=== PATIENT | female | born 1970 | race Caucasian/White ===

== ENCOUNTER → 2016-05-21 | Outpatient (CLI) | payer BC ==
[~2016-05-21] MED LIST: CALCTAB7 PO; CYAN10002 IM; FLNCV PO; LEVO150T9 PO; LISI-725 PO; NRT25 PO; ZINC PO
--- NOTE | 2016-05-21 16:45 | DIAGNOSTIC IMAGING REPORT ---
Brain MRI WITHOUT CONTRAST HISTORY: Headache R51 TECHNIQUE: Multiplanar multisequence MRI of the brain was performed without the use of contrast. COMPARISON STUDY: None. FINDINGS: There are no areas of restricted diffusion to suggest acute infarction. The midline structures are intact. The paranasal sinuses are clear. The mastoid air cells are clear. The ventricles and sulci are within normal limits for age. There is no mass, hematoma, midline shift. The major vascular flow-voids at the skull base are well maintained. Several small foci of increased signal are identified in the left frontal and periventricular regions. This can be seen patient with a history of chronic headache. IMPRESSION: Several small foci of increased signal within the periventricular and deep white matter regions. This can be seen in a patient with history of chronic headache. Other etiologies are considered less likely Electronically signed by: Jose Luis Palafox M.D. 05/21/2016 4:44 PM Dictated Date/Time: 05/21/2016 4:41 PM
== END | disposition home or self-care (01) ==
LOC: C.MRI 16:09
PROVIDERS: ATTEND Family Medicine
DX: R51 Headache (principal)

== ENCOUNTER → 2017-02-26 | Outpatient (CLI) | payer BC ==
[~2017-02-26] MED LIST changes: +MTR600X PO; +OXYC-57 PO; +PEDICHW44 PO; +vitamin b12
[2017-02-26 17:39] LABS: BASO % 0.4 %; BASO ABS # 0.04 K/uL (0-0.2); EOS % 2.7 %; EOS ABS # 0.29 K/uL (0-0.5); HEMATOCRIT 39.6 % (37-47); HEMOGLOBIN 13.2 g/dL (12.0-16.0); IG# 0.01 K/uL (0.00-0.02); LYMPH % 25.6 %; LYMPH ABS # 2.73 K/uL (1.2-3.4); MEAN CELL VOLUME 94.7 fL (80-100); MEAN CORPUSCULAR HEMOGLOBIN 31.6 pg (25-34); MEAN CORPUSCULAR HGB CONC 33.3 g/dl (32-36); MEAN PLATELET VOLUME 10.1 fL (7.4-10.4); MONO % 6.5 %; MONO ABS # 0.69 K/uL (0.11-0.59); NEUT % 64.7 %; NEUT ABS # 6.92 K/uL (1.4-6.5); PLATELET COUNT 354 K/uL (130-400); RED CELL DISTRIBUTION WIDTH CV 12.8 % (11.5-14.5); RED CELL DISTRIBUTION WIDTH SD 44.1 fL (36.4-46.3); WHITE BLOOD COUNT 10.68 K/uL (4.8-10.8)
[2017-02-26 17:57] LABS: ALBUMIN 3.9 gm/dl (3.4-5.0); ALT/SGPT 30 U/L (12-78); AST/SGOT 15 U/L (15-37); BLOOD UREA NITROGEN 10 mg/dl (7-18); CALCIUM 8.8 mg/dl (8.5-10.1); CARBON DIOXIDE 28 mmol/L (21-32); CREATININE 0.99 mg/dl (0.60-1.20); GLUCOSE 80 mg/dl (70-99); POTASSIUM 3.7 mmol/L (3.5-5.1); SODIUM 137 mmol/L (136-145)
[2017-02-26 18:08] LABS: ALKALINE PHOSPHATASE 98 U/L (45-117); TOTAL PROTEIN 7.9 gm/dl (6.4-8.2)
== END | disposition home or self-care (01) ==
LOC: C.LAB 17:03
PROVIDERS: ATTEND Student in an Organized Health Care Education/Training Program
DX: R10.811 Right upper quadrant abdominal tenderness (principal); E03.9 Hypothyroidism, unspecified

== ENCOUNTER → 2017-03-15 | Outpatient (CLI) | payer OTHER ==
[~2017-03-15] MED LIST changes: -MTR600X PO; -OXYC-57 PO; -PEDICHW44 PO; -vitamin b12
--- NOTE | 2017-03-15 17:46 | DIAGNOSTIC IMAGING REPORT ---
MRCP CLINICAL HISTORY: ABD PAIN,LOOSE STOOLS,HX OF SPHINCTEROTOMY pain. Nausea. TECHNIQUE: Multi axial MRI acquisition. COMPARISON STUDY: None FINDINGS: Mild bibasilar atelectasis. Liver is uniform in appearance. Prior cholecystectomy. Pancreas is uniform. Mild cortical scarring of the kidneys. Several small renal cortical cysts. No evidence renal hydronephrosis. No significant upper abdominal adenopathy. Nonobstructive bowel pattern. MRCP component of the study is unremarkable. No biliary ductal distention. No significant filling defects. IMPRESSION: 1. Several small renal cysts. 2. Minimal bibasilar dependent atelectasis. 3. Otherwise negative study post cholecystectomy. 4. Negative MRCP The above report was generated using voice recognition software. It may contain grammatical, syntax or spelling errors. Electronically signed by: Jose Luis Palafox M.D. 03/15/2017 5:44 PM Dictated Date/Time: 03/15/2017 5:39 PM
== END | disposition home or self-care (01) ==
LOC: C.MRI 17:01
PROVIDERS: ATTEND Family Medicine
DX: N28.1 Cyst of kidney, acquired (principal); Z98.890 Other specified postprocedural states; R19.5 Other fecal abnormalities

== ENCOUNTER → 2017-04-02 | Outpatient (CLI) | payer OTHER ==
[2017-04-02 19:17] LABS: BASO % 0.4 %; BASO ABS # 0.05 K/uL (0-0.2); EOS % 2.6 %; HEMATOCRIT 39.5 % (37-47); HEMOGLOBIN 13.4 g/dL (12.0-16.0); IG# 0.02 K/uL (0.00-0.02); LYMPH % 31.3 %; MEAN CELL VOLUME 93.8 fL (80-100); MEAN CORPUSCULAR HEMOGLOBIN 31.8 pg (25-34); MEAN CORPUSCULAR HGB CONC 33.9 g/dl (32-36); MEAN PLATELET VOLUME 9.9 fL (7.4-10.4); MONO % 8.4 %; MONO ABS # 0.97 K/uL (0.11-0.59); NEUT % 57.1 %; NEUT ABS # 6.57 K/uL (1.4-6.5); PLATELET COUNT 339 K/uL (130-400); RED CELL DISTRIBUTION WIDTH SD 44.8 fL (36.4-46.3); WHITE BLOOD COUNT 11.51 K/uL (4.8-10.8)
--- NOTE | 2017-04-02 19:29 | DIAGNOSTIC IMAGING REPORT ---
CT SCAN OF THE PELVIS WITHOUT IV CONTRAST CLINICAL HISTORY: Left pelvic pain. COMPARISON STUDY: Pelvic CT dated 04/12/2011. TECHNIQUE: CT scan of the pelvis is performed from the pelvic inlet to the proximal femora. Images are reviewed in the axial, sagittal, and coronal planes. IV contrast was not administered as per the referring clinician. Note that the examination was performed in suboptimal fashion without oral and IV contrast. A dose lowering technique was utilized adhering to the principles of ALARA. CT DOSE: 256.70 mGy.cm FINDINGS: The bladder is normal as visualized. The uterus is surgically absent. The left ovary appears enlarged and heterogeneous, measuring up to 4 cm as seen on axial image #100. Inflammatory change is identified surrounding the left ovary. The right ovary is normal as imaged. The visualized small bowel loops and colon are normal in caliber. A small bowel anastomosis is partially visualized in the central abdomen. No intraperitoneal free air or fluid fluid is seen in the pelvis. The bony pelvis appears intact. No lytic or blastic bony lesion is seen. The musculature of the pelvis is normal and symmetric. IMPRESSION: 1. The left ovary appears enlarged and there is surrounding inflammatory stranding. The appearance is nonspecific, and this could represent an oophoritis or possibly ovarian torsion. Emergent pelvic ultrasound is recommended for further assessment. 2. The uterus is surgically absent. 3. Additional findings as above. Electronically signed by: Mathew Joya M.D. 04/02/2017 7:27 PM Dictated Date/Time: 04/02/2017 7:24 PM
[2017-04-02 19:52] LABS: ALBUMIN 3.9 gm/dl (3.4-5.0); ALT/SGPT 26 U/L (12-78); AST/SGOT 12 U/L (15-37); BLOOD UREA NITROGEN 8 mg/dl (7-18); CALCIUM 8.9 mg/dl (8.5-10.1); CARBON DIOXIDE 28 mmol/L (21-32); CREATININE 0.86 mg/dl (0.60-1.20); GLUCOSE 85 mg/dl (70-99); POTASSIUM 3.6 mmol/L (3.5-5.1); SODIUM 138 mmol/L (136-145)
[2017-04-02 19:55] LABS: ALKALINE PHOSPHATASE 104 U/L (45-117); TOTAL PROTEIN 8.4 gm/dl (6.4-8.2)
--- NOTE | 2017-04-02 20:50 | DIAGNOSTIC IMAGING REPORT ---
ULTRASOUND OF THE PELVIS CLINICAL HISTORY: Left pelvic pain. COMPARISON STUDY: Pelvic CT performed the same day 04/02/2017. TECHNIQUE: Real-time, grayscale, and color flow sonography of the pelvis is performed both transabdominally and endovaginally. Images are reviewed in the transverse and longitudinal planes. FINDINGS: Uterus: The uterus is surgically absent Ovaries: Left ovary is mildly enlarged and heterogeneous, measuring 4.0 x 2.5 x 2.6 cm. There is a 2.8 x 2.7 x 2.4 cm heterogeneous lesion in the left ovary. The right ovary is normal in appearance, measuring 2.4 x 1.7 x 1.6 cm. There are small left-sided ovarian follicles. Normal Doppler waveforms are shown within both ovaries. Pelvis: There is no free fluid in the cul-de-sac. No concerning adnexal lesion is seen. IMPRESSION: 1. The left ovary is mildly enlarged and contains a 2.8 cm heterogeneous lesion. This likely represent a complex/hemorrhagic cyst. Follow-up ultrasound in 2-3 menstrual cycles is recommended to document resolution. 2. The right ovary is normal in appearance. 3. There is no sonographic evidence of ovarian torsion at the time of examination. 4. The uterus is surgically absent. Electronically signed by: Mathew Joya M.D. 04/02/2017 8:48 PM Dictated Date/Time: 04/02/2017 8:45 PM
== END | disposition home or self-care (01) ==
LOC: C.CTS 19:04
PROVIDERS: ATTEND Family Medicine
DX: N83.9 Noninflammatory disorder of ovary, fallopian tube and broad ligament, unspecified (principal); Z90.710 Acquired absence of both cervix and uterus; R10.9 Unspecified abdominal pain

== ENCOUNTER → 2017-06-21 | Day surgery (SDC) | payer OTHER ==
[2017-06-19 09:15] VITALS: BMI 31.0
[2017-06-19 09:59] LABS: BASO % 0.4 %; BASO ABS # 0.03 K/uL (0-0.2); EOS % 2.6 %; EOS ABS # 0.21 K/uL (0-0.5); HEMATOCRIT 38.4 % (37-47); HEMOGLOBIN 12.9 g/dL (12.0-16.0); IG# 0.02 K/uL (0.00-0.02); LYMPH % 28.1 %; LYMPH ABS # 2.29 K/uL (1.2-3.4); MEAN CELL VOLUME 93.7 fL (80-100); MEAN CORPUSCULAR HEMOGLOBIN 31.5 pg (25-34); MEAN CORPUSCULAR HGB CONC 33.6 g/dl (32-36); MEAN PLATELET VOLUME 9.7 fL (7.4-10.4); MONO % 8.8 %; MONO ABS # 0.72 K/uL (0.11-0.59); NEUT % 59.9 %; NEUT ABS # 4.89 K/uL (1.4-6.5); PLATELET COUNT 310 K/uL (130-400); RED CELL DISTRIBUTION WIDTH SD 44.9 fL (36.4-46.3); WHITE BLOOD COUNT 8.16 K/uL (4.8-10.8)
[2017-06-19 10:09] LABS: CALCIUM 8.8 mg/dl (8.5-10.1); CREATININE 0.79 mg/dl (0.60-1.20); POTASSIUM 3.9 mmol/L (3.5-5.1)
[~2017-06-21] VITALS: Ht 167.6 cm; Wt 86.5 kg
[~2017-06-21] MED LIST changes: +ACETAMINOPHEN 1000 MG/100 ML IV IV ONE; +ATROPINE SULFATE 0.1 MG/ML 5ML SYR IV PRN; +BUPIVACAINE 0.5 % 5 MG/1 ML MPF 30ML VIAL ONE; +CHECK SCOPOLAMINE PATCH PLACEMENT SCH; -CYAN10002 IM; +DEXAMETHASONE SOD INJ 4 MG/ML VIAL ONE; +DiphenhydrAMINE HCL 50 MG/ML VIAL ONE; +EpHEDrine SULFATE INJ 50 MG/ML AMP IV PRN; +EpHEDrine SULFATE INJ 50 MG/ML AMP ONE; +FENTANYL CITRATE INJ 50 MCG/1 ML 2 ML VIAL ONE; -FLNCV PO; +GLYCOPYRROLATE INJ 0.2 MG/ML VIAL ONE; +HYDROmorphone INJ 1 MG/ML SYR IV PRN; +IBUPROFEN 600 MG TAB PO PRN; +KETOROLAC TROMETHAMINE 30 MG/ML VIAL IV. PRN; +KETOROLAC TROMETHAMINE 30 MG/ML VIAL ONE; +LACTATED RINGER'S 1000ML 1,000 ML IV SCH; +LIDOCAINE HCL 2% 2 ML VIAL (20MG/ML) ONE; +METOCLOPRAMIDE HCL INJ 5 MG/ML 2 ML VIAL ONE; +MIDAZOLAM HCL 1 MG/ML 2ML VIAL ONE; +MTR600X PO; +NEOSTIGMINE METHYLSULFATE 5 MG/5 ML SYR ONE; +ONDANSETRON INJ 2 MG/ML 2 ML VIAL IV PRN; +ONDANSETRON INJ 2 MG/ML 2 ML VIAL ONE; +OXYC-57 PO; +OXYCODONE/ACETAMINOPHEN 5-325 TAB PO PRN; +PEDICHW44 PO; +PHENYLEPHRINE HCL INJ 10 MG/ML VIAL ONE; +PROMETHAZINE HCL INJ 25 MG in SODIUM CHLORIDE 0.9% 50ML 50 ML IV PRN; +PROPOFOL IV EMULSION 10 MG/ML 20 ML VIAL IV ONE; +RANITIDINE HCL 25 MG/ML INJ ONE; +SCOPOLAMINE 1.5 MG TDSY TD ONE; +SCOPOLAMINE 1.5 MG TDSY TD SCH; +SODIUM CHLORIDE 0.9% 1000ML 1,000 ML IV SCH; +SUCCINYLCHOLINE CHLORIDE 20 MG/ML 10 ML VIAL IV ONE; +vitamin b12
[2017-06-21 09:13] VITALS: BP 130/87; PULSE 74; TEMP 36.8; O2SAT 100; Ht 167.6 cm; Wt 86.5 kg
--- NOTE | 2017-06-21 11:23 | History & Physical Bridge Note ---
H&P Re-Evaluation Bridge Note: I have examined the patient, reviewed the History & Physical and in the interval since the performance of the History & Physical I have noted the following changes of clinical significance: No changes noted
--- NOTE | 2017-06-21 12:14 | Discharge Instructions ---
Discharge Instructions Date of Service Jun 21, 2017. Admission Reason for Admission: Ovarian Cyst, Female Pelvic Pain Discharge Discharge Diagnosis / Problem: pelvic pain Discharge Goals Goal(s): Routine recovery after surgery Activity Recommendations Activity Limitations: per Instructions/Follow-up section . Instructions / Follow-Up Instructions / Follow-Up ACTIVITY RECOMMENDATIONS: * Rest the first 2-3 days. You should be back to your normal activity levels by day 3. * No heavy lifting for 2 weeks. * No intercourse, tampons or douching for 1-2 weeks. * You may shower the next day. * Do not drive anytime that you are taking narcotic pain medicines. RETURN TO SCHOOL/WORK: * May return to school or work after 2-3 days. DIET: Nausea may occur in the immediate post-operative period. If so, take clear liquids such as tea, bouillon, apple juice until all nausea has subsided, then resume usual diet. MEDICATIONS: Resume previous medications unless instructed otherwise by your surgeon. Ibuprofen 200mg 2-3 tablets every 4-6 hours as needed -- OR -- Aleve 2 tablets every 8-12 hours as needed for post-operative discomfort Medications are over the counter. Tylenol may be used if above medications are contraindicated or not preferred. Medication should be taken with food or milk. Do not take on an empty stomach. SPECIAL CARE INSTRUCTIONS: * Check temperature twice daily for one week. report any elevation over 101 degrees. * You may experience some vagina spotting and/or bleeding. This is normal for 1 -2 weeks and should not be heavier than a normal period. If it is unusual in amount, call your physician. * Post-operative discomfort may consist of a sore throat, a "bloated" feeling and pain in the shoulders. these are normal symptoms, which usually only last for 2-3 days. * Remove band-aids tomorrow and shower. There is no need to replace band-aids unless there is drainage or discomfort. FOLLOW UP VISIT: Call your doctor's office for a post-operative 2 week visit if not already scheduled. Current Hospital Diet Patient's current hospital diet: Discharge Diet Recommended Diet: Regular Diet Pending Studies Studies pending at discharge: no Medical Emergencies . Who to Call and When: Medical Emergencies: If at any time you feel your situation is an emergency, please call 911 immediately. . Non-Emergent Contact Non-Emergency issues call your: Elevator Runner . . "Provider Documentation" section prepared by Warren Zarate. .
--- NOTE | 2017-06-21 13:19 | [facility] Post Operative Brief Note ---
Immediate Operative Summary Operative Date Jun 21, 2017. Pre-Operative Diagnosis Pelvic pain; left ovarian cyst Post-Operative Diagnosis Pelvic pain, left ovarian cyst, adhesions Procedure(s) Performed Robotic-assisted Laparoscopic Left Salpingo-Oophorectomy, Lysis of Adhesions, and resection of possible endometriosis Surgeon Dr. Zarate Bull Gang Supervisor Surgeon(s) none Estimated Blood Loss 10 cc Findings Consistent with Post-Op Diagnosis Specimens A: left adnexa B: peritoneal implants Drains None Anesthesia Type General Complication(s) none Disposition Accompanied Pt To Recover: no Disposition: Recovery Room / PACU
--- NOTE | 2017-06-21 14:01 | OPERATIVE REPORT ---
DATE OF OPERATION: 06/21/2017 PREOPERATIVE DIAGNOSES: Pelvic pain, left ovarian cyst. POSTOPERATIVE DIAGNOSES: Pelvic pain, left ovarian cyst, adhesions, possible endometriosis. PROCEDURE: Robotically assisted laparoscopic left salpingo-oophorectomy, lysis of adhesions, and resection of possible endometriosis. SURGEON: Warren Zarate MD FLOOR PERSON: None. ESTIMATED BLOOD LOSS: 10 mL. FINDINGS: Consistent with postop diagnoses. SPECIMENS: Left adnexa and peritoneal implants x2. DRAINS: None. ANESTHETIC: General. COMPLICATIONS: None. DISPOSITION: Recovery room. DESCRIPTION OF PROCEDURE: The patient was given general anesthetic, prepped and draped in dorsolithotomy position in [facility]. The bladder was drained with a Cruz catheter. Moist sponge on a stick placed in the vagina for manipulation of the vagina. Gloves were changed. Using the previous supraumbilical incision with scalpel we cut this and dissected down through subcutaneous fat, splitting the rectus muscles and entering the peritoneal cavity without difficulty. A blunt-tipped Anthony trocar was placed, balloon inflated with air to allow stabilization of the port, CO2 gas used to insufflate the abdomen. FINDINGS: Upper abdomen normal, no sign of visceral organ injury. Deep Trendelenburg position revealed flimsy adhesions along the vagina towards the left side. The adhesions were covering the entire left adnexa. I could see the right adnexa and this was completely normal. Because her pain was on the left side, we planned to take out her left ovary and lyse adhesions. We placed a robotic port, 1 on the right, 1 on the left, and the left upper quadrant 5 mm port. These were all placed under direct visualization. Robot was docked. Arm #1 monopolar obdulio, arm 2 bipolar [place]. Using the vagina manipulator, I was able to then see the adhesions, dissected these away largely without electrosurgery. Once the adhesions were dissected away, I was able to dissect away the lateral adhesions of the colon on the left abdominal sidewall. This then exposed the left ovary. I could see the left ureter. It was well away from the ovarian blood supply, so, I was able to then elevate the ovary with the accessory port using a nontraumatic grasper and then coagulated the blood supply proximal to the left ovary. This was then cut and then the ovary was removed from its lateral wall attachments and placed in the cul-de-sac. Hemostasis was excellent. The ureter could be seen as normally peristalsing well away from this area. There were 2 other areas of darkened cystic regions that were in the cul-de-sac and the right anterior vagina. These were resected sharply and sent off as separate specimens. At this stage, hemostasis was excellent. We then undocked the robot and then using a 5 mm scope and a bag 10 mm through the umbilical port, we grasped the ovary, placed it in the bag and removed the bag through the umbilical port. After generous irrigation and suction, hemostasis was excellent. Ports were removed. Incisions were injected with 0.5% Marcaine. Fascia was closed carefully in the umbilical incision with 0 Vicryl. The incisions were then closed with 4-0 subcuticular Monocryl and Dermabond applied. Instruments were removed from the vagina. The Cruz catheter was removed. I attest to the content of the Intraoperative Record and any orders documented therein. Any exception s are noted below.
[2017-06-21] MEDS: FENTANYL CITRATE INJ 50 MCG/1 ML 2 ML VIAL IV PRN ×4 (14:06→14:25)
--- NOTE | 2017-06-21 14:31 | Anesthesiology Progress Note ---
Anesthesia Post Op Note Date & Time Jun 21, 2017 at 14:31 Vital Signs Pain Intensity: 0 Vital Signs Past 12 Hours Date Time Temp Pulse Resp B/P (MAP) Pulse Ox O2 Delivery O2 Flow Rate FiO2 06/21/17 14:14 80 15 06/21/17 14:14 80 15 96 06/21/17 14:11 134/82 06/21/17 14:09 89 15 06/21/17 14:09 88 15 95 06/21/17 14:06 131/85 06/21/17 14:04 86 17 06/21/17 14:04 86 17 89 06/21/17 14:01 136/87 06/21/17 13:59 96 18 96 06/21/17 13:59 94 18 06/21/17 13:57 36.3 86 16 134/82 (100) 95 Room Air 06/21/17 13:56 139/93 06/21/17 13:54 86 16 06/21/17 13:54 86 16 100 06/21/17 13:51 133/86 06/21/17 13:49 90 16 100 06/21/17 13:49 89 16 06/21/17 13:48 79 19 100 06/21/17 13:48 81 19 06/21/17 13:46 135/82 06/21/17 13:43 96 10 06/21/17 13:43 94 10 99 06/21/17 13:41 138/90 06/21/17 13:38 81 15 100 06/21/17 13:38 80 15 06/21/17 13:36 141/87 06/21/17 13:33 87 12 06/21/17 13:33 36.3 88 16 141/86 (100) 100 Oxymask 10 06/21/17 13:33 87 12 141/86 100 06/21/17 09:13 36.8 74 18 130/87 (101) 100 Room Air Notes Mental Status: alert / awake / arousable, participated in evaluation Pt Amnestic to Procedure: Yes Nausea / Vomiting: adequately controlled Pain: adequately controlled Airway Patency, RR, SpO2: stable & adequate BP & HR: stable & adequate Hydration State: stable & adequate Anesthetic Complications: no major complications apparent
[2017-06-21 14:50] VITALS: BP 123/78; PULSE 85; TEMP 37; O2SAT 96
[2017-06-21 15:20] VITALS: BP 124/70; PULSE 80; TEMP 37; O2SAT 98
== END | disposition home or self-care (01) ==
LOC: C.ACU 08:37
PROVIDERS: ATTEND Obstetrics & Gynecology
DX: N80.3 Endometriosis of pelvic peritoneum (principal); N83.209 Unspecified ovarian cyst, unspecified side; E11.9 Type 2 diabetes mellitus without complications; I10 Essential (primary) hypertension; Z88.5 Allergy status to narcotic agent
CPT/HCPCS: 58661; 58662; S2900

== ENCOUNTER → 2017-09-29 | Outpatient (CLI) | payer OTHER ==
[~2017-09-29] MED LIST changes: -ACETAMINOPHEN 1000 MG/100 ML IV IV ONE; -ATROPINE SULFATE 0.1 MG/ML 5ML SYR IV PRN; -BUPIVACAINE 0.5 % 5 MG/1 ML MPF 30ML VIAL ONE; -CHECK SCOPOLAMINE PATCH PLACEMENT SCH; -DEXAMETHASONE SOD INJ 4 MG/ML VIAL ONE; -DiphenhydrAMINE HCL 50 MG/ML VIAL ONE; -EpHEDrine SULFATE INJ 50 MG/ML AMP IV PRN; -EpHEDrine SULFATE INJ 50 MG/ML AMP ONE; -FENTANYL CITRATE INJ 50 MCG/1 ML 2 ML VIAL ONE; -GLYCOPYRROLATE INJ 0.2 MG/ML VIAL ONE; -HYDROmorphone INJ 1 MG/ML SYR IV PRN; -IBUPROFEN 600 MG TAB PO PRN; -KETOROLAC TROMETHAMINE 30 MG/ML VIAL IV. PRN; -KETOROLAC TROMETHAMINE 30 MG/ML VIAL ONE; -LACTATED RINGER'S 1000ML 1,000 ML IV SCH; -LIDOCAINE HCL 2% 2 ML VIAL (20MG/ML) ONE; -METOCLOPRAMIDE HCL INJ 5 MG/ML 2 ML VIAL ONE; -MIDAZOLAM HCL 1 MG/ML 2ML VIAL ONE; -NEOSTIGMINE METHYLSULFATE 5 MG/5 ML SYR ONE; -ONDANSETRON INJ 2 MG/ML 2 ML VIAL IV PRN; -ONDANSETRON INJ 2 MG/ML 2 ML VIAL ONE; -OXYCODONE/ACETAMINOPHEN 5-325 TAB PO PRN; -PHENYLEPHRINE HCL INJ 10 MG/ML VIAL ONE; -PROMETHAZINE HCL INJ 25 MG in SODIUM CHLORIDE 0.9% 50ML 50 ML IV PRN; -PROPOFOL IV EMULSION 10 MG/ML 20 ML VIAL IV ONE; -RANITIDINE HCL 25 MG/ML INJ ONE; -SCOPOLAMINE 1.5 MG TDSY TD ONE; -SCOPOLAMINE 1.5 MG TDSY TD SCH; -SODIUM CHLORIDE 0.9% 1000ML 1,000 ML IV SCH; -SUCCINYLCHOLINE CHLORIDE 20 MG/ML 10 ML VIAL IV ONE
--- NOTE | 2017-09-29 13:33 | DIAGNOSTIC IMAGING REPORT ---
KUB CLINICAL HISTORY: LT SIDED KIDENY STONE,LOW BACK PAIN pain COMPARISON STUDY: 11/17/2013 FINDINGS: The soft tissues, psoas shadows, renal outlines and intestinal gas pattern appear normal. There is no evidence for bowel obstruction. No abnormal abdominal calcifications are seen. IMPRESSION: Normal study. The above report was generated using voice recognition software. It may contain grammatical, syntax or spelling errors. Electronically signed by: Jose Luis Palafox M.D. 09/29/2017 1:31 PM Dictated Date/Time: 09/29/2017 1:31 PM
== END | disposition home or self-care (01) ==
LOC: C.RAD 13:14
PROVIDERS: ATTEND Family Medicine
DX: M54.5 Low back pain (principal)

== ENCOUNTER → 2017-10-02 | Outpatient (CLI) | payer OTHER ==
--- NOTE | 2017-10-02 15:50 | DIAGNOSTIC IMAGING REPORT ---
CT SCAN OF THE ABDOMEN AND PELVIS WITHOUT IV CONTRAST CLINICAL HISTORY: Low back pain. History of nephrolithiasis. COMPARISON STUDY: Abdominal CT dated 11/16/2011. TECHNIQUE: CT scan of the abdomen and pelvis is performed from the lung bases to the proximal femora. Images are reviewed in the axial, sagittal, and coronal planes. IV contrast was not administered for this examination as per the referring clinician. A dose lowering technique was utilized adhering to the principles of ALARA. CT DOSE: 1240.78 mGy.cm FINDINGS: Lung bases: The heart is normal in size and without pericardial effusion. A punctate calcified granuloma is seen at the left lung base. The lung bases are otherwise clear. Liver: The unenhanced liver is enlarged, measuring 22.3 cm in length. The liver is otherwise normal in contour and attenuation. Fatty infiltration is noted adjacent to falciform ligament. There is no intrahepatic biliary ductal dilatation. Gallbladder: Surgically absent noting clips in the gallbladder fossa. Spleen: Normal in size and attenuation. Pancreas: Unremarkable. Adrenal glands: Unremarkable. Kidneys: The unenhanced kidneys are normal in size and without hydronephrosis. There are numerous punctate nonobstructing renal calculi seen bilaterally (at least 4 in each kidney). There are 2 larger nonobstructing calculi in the left kidney measuring 3 mm and 4 mm. There is no evidence of contour deforming renal mass lesion. A circumaortic left renal vein is incidentally noted. Abdominal vasculature: The abdominal aorta is normal in course and caliber. Stomach and bowel: A tiny hiatal hernia is noted. 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 No bowel obstruction is identified. The appendix is not identified. Peritoneum: There is no intraperitoneal free air or abdominal ascites. Lymphadenopathy: None. Pelvic viscera: The bladder is normal as visualized. The uterus is surgically absent. No adnexal lesion is seen. Skeletal structures: No lytic or blastic lesions are seen. IMPRESSION: 1. There are no acute infectious or inflammatory findings in the abdomen or pelvis. 2. There are bilateral nonobstructing renal calculi. 3. There are postoperative changes from a Kavon-en-Y gastric bypass procedure. No bowel obstruction is seen. 4. Hepatomegaly. Electronically signed by: Mathew Joya M.D. 10/02/2017 3:49 PM Dictated Date/Time: 10/02/2017 3:43 PM
== END | disposition home or self-care (01) ==
LOC: C.CTS 15:21
PROVIDERS: ATTEND Family Medicine
DX: N20.0 Calculus of kidney (principal); M54.5 Low back pain; R16.0 Hepatomegaly, not elsewhere classified